=== PATIENT | male | born 1975 | race Caucasian/White ===

== ENCOUNTER → 2016-08-23 | Outpatient (REF) | payer MEDICAID ==
[~2016-08-23] MED LIST: /WARF5TA OR; ACET65TA OR; IBUP600T OR; PERC7.5T8 OR; ZITHTAB OR
== END ==
LOC: M SFHCPLAZ 16:19
PROVIDERS: ATTEND Family Medicine
DX: R30.0 Dysuria (principal); Z11.3 Encounter for screening for infections with a predominantly sexual mode of transmission; Z11.59 Encounter for screening for other viral diseases; Z11.4 Encounter for screening for human immunodeficiency virus [HIV]

== ENCOUNTER → 2017-12-15 | Outpatient (REF) | payer OTHER ==
[2017-12-15 17:26] LABS: HEMATOCRIT 51.9 % (42.0-52.0); HEMOGLOBIN 16.9 g/dl (13.5-17.5); MEAN CORPUSCULAR HEMOGLOBIN 26.3 pg (27.0-33.0); MEAN CORPUSCULAR HGB CONC 32.6 g/dl (32.0-36.5); MEAN CORPUSCULAR VOLUME 80.8 fl (80.0-96.0); PLATELET COUNT, AUTOMATED 166 10^3/uL (150-450); RED BLOOD COUNT 6.42 10^6/uL (4.30-6.10); RED CELL DISTRIBUTION WIDTH 15.7 % (11.5-14.5); WHITE BLOOD COUNT 10.8 10^3/uL (4.0-10.0)
[2017-12-15 18:20] LABS: ALBUMIN/GLOBULIN RATIO 1.25 (1.00-1.93); ALKALINE PHOSPHATASE 76 U/L (45-117); ALT/SGPT 86 U/L (12-78); ANION GAP 5 MEQ/L (8-16); AST/SGOT 58 U/L (7-37); BILIRUBIN,TOTAL 0.4 MG/DL (0.2-1.0); BLOOD UREA NITROGEN 9 MG/DL (7-18); CALCIUM LEVEL 9.4 MG/DL (8.5-10.1); CARBON DIOXIDE LEVEL 29 MEQ/L (21-32); CHLORIDE LEVEL 106 MEQ/L (98-107); CREATININE FOR GFR 1.16 MG/DL (0.70-1.30); GLOMERULAR FILTRATION RATE > 60.0 (>60); GLUCOSE, FASTING 89 MG/DL (70-100); POTASSIUM SERUM 4.3 MEQ/L (3.5-5.1); SODIUM LEVEL 140 MEQ/L (136-145); TOTAL PROTEIN 7.2 GM/DL (6.4-8.2)
[2017-12-19 00:10] LABS: CARDIOLIPIN IGA ANTIBODY <9 APL U/mL (0-11); CARDIOLIPIN IGG ANTIBODY <9 GPL U/mL (0-14); CARDIOLIPIN IGM ANTIBODY <9 MPL U/mL (0-12)
[2017-12-19 09:59] LABS: PTT LUPUS TYPE ANTICOAG SCREEN 2.3 (0-1.2)
[2017-12-19 10:06] LABS: DRVV CONFIRM 50.2 SEC; LUPUS CONFIRM RATIO 1.3
[2017-12-19 10:18] LABS: NORMALIZED RATIO 1.77 (0.00-1.20)
[2017-12-26 00:07] LABS: HEXAGONAL PHASE PHOSPHOLIPID 8 sec (0-11)
== END ==
LOC: M SFHCPLAZ 16:07
DX: R53.83 Other fatigue (principal); D68.312 Antiphospholipid antibody with hemorrhagic disorder

== ENCOUNTER → 2018-01-03 | Outpatient (CLI) | payer OTHER | LOC: M SLEEP HO 11:21 | DX: G47.30 Sleep apnea, unspecified (principal) | CPT/HCPCS: G0399 ==

== ENCOUNTER → 2018-01-12 | Outpatient (REF) | payer OTHER ==
[2018-01-12 16:07] LABS: INR 0.88
[2018-01-12 16:08] LABS: PARTIAL THROMBOPLASTIN TIME 26.1 SECONDS (25.4-37.6)
[2018-01-16 10:47] LABS: DRVV SCREEN 47.4 SEC
[2018-01-16 11:18] LABS: PTT LUPUS TYPE ANTICOAG SCREEN 1.1 (0-1.2)
[2018-01-22 14:12] LABS: Anticardiolipin Ab, IgA <10 APL (.); DRVTT Confirm Seconds 36.4 sec (.); DRVTT Ratio 1.6 ratio (.); DRVTT Screen Seconds 61.7 sec (.)
== END ==
LOC: M SFHCPLAZ 14:22
DX: D68.312 Antiphospholipid antibody with hemorrhagic disorder (principal)
CPT/HCPCS: 86147

== ENCOUNTER → 2019-01-16 | Outpatient (CLI) | payer OTHER ==
[~2019-01-16] MED LIST changes: -/WARF5TA OR; +COUM1TAB17 OR
--- NOTE | 2019-01-16 16:32 | REP ---
Four views right ankle: 01/16/2019. Indication: Right ankle pain following injury. Comparison: None. Findings: There is no acute fracture, subluxation or dislocation. Minimal soft tissue swelling over the lateral malleolus is noted. No lytic or blastic lesions are present. Impression: No acute osseous right ankle injury. Electronically Signed by Jose Flores DO 01/16/2019 04:23 P
== END ==
LOC: M LRY 16:00
PROVIDERS: ATTEND Nurse Practitioner Family
DX: S99.911A Unspecified injury of right ankle, initial encounter (principal); X58.XXXA Exposure to other specified factors, initial encounter; Y92.89 Other specified places as the place of occurrence of the external cause